=== PATIENT | female | born 1985 | race Two or more races ===

== ENCOUNTER 2023-07-26 13:51 | Outpatient (CLI) | payer BC | END 2023-07-26 13:52 | disposition home or self-care (01) | LOC: CSHULT 13:51 | PROVIDERS: ATTEND Physician Assistant | DX: R16.1 Splenomegaly, not elsewhere classified (principal) | CPT/HCPCS: 76705 ==

== ENCOUNTER 2024-07-31 15:31 | Outpatient (CLI) | payer BC | END 2024-07-31 15:32 | disposition home or self-care (01) | LOC: CSHULT 15:31 | PROVIDERS: ATTEND Physician Assistant | DX: M79.89 Other specified soft tissue disorders (principal) | CPT/HCPCS: 76999 ==